=== PATIENT | female | born 1955 | race Caucasian/White ===

== ENCOUNTER 2018-07-02 16:53 | Inpatient (IN) | payer OTHER ==
[~2018-07-02] VITALS: Ht 167.6 cm; Wt 64.7 kg
[2018-07-02 17:33] LABS: BASOPHILS ABSOLUTE AUTO 0.02 K/mm3 (0.00-0.23); BASOPHILS PERCENT AUTO 0 % (0-2); EOSINOPHILS ABSOLUTE AUTO 0.09 K/mm3 (0.00-0.68); EOSINOPHILS PERCENT AUTO 1 % (0-6); Hematocrit 38.6 % (33.0-51.0); Hemoglobin 12.9 g/dL (11.5-16.0); IMMATURE GRAN ABSOLUTE AUTO 0.13 K/mm3 (0.00-0.10); IMMATURE GRAN PERCENT AUTO 1 % (0-1); LYMPHOCYTES ABSOLUTE AUTO 1.32 K/mm3 (0.84-5.20); LYMPHOCYTES PERCENT AUTO 13 % (21-46); MONOCYTES ABSOLUTE AUTO 0.55 K/mm3 (0.16-1.47); MONOCYTES PERCENT AUTO 6 % (4-13); Mean Corpuscular HGB 29.9 pg (26.0-34.0); Mean Corpuscular HGB Conc 33.4 g/dL (31.5-36.5); Mean Corpuscular Volume 90 fL (80-100); NEUTROPHILS ABSOLUTE AUTO 7.72 K/mm3 (1.96-9.15); NEUTROPHILS PERCENT AUTO 79 % (41-73); Platelet Count 201 K/mm3 (150-400); RDW Coefficient Variation 11.9 % (11.7-14.2); RDW Standard Deviation 39.3 fL (35.1-46.3); Red Blood Cell Count 4.31 M/mm3 (3.80-5.20); White Blood Cell Count 9.83 K/mm3 (4.00-11.30)
[2018-07-02 17:52] LABS: Prothrombin Time Results 10.3 Sec (9.7-11.5)
[2018-07-02 18:03] LABS: Alanine Aminotransfer (ALT/SGP 159 U/L (12-78); Albumin, Blood 3.3 g/dL (3.4-5.0); Albumin/Globulin Ratio 0.9 (0.8-1.8); Alk Phos 74 U/L (50-136); Anion Gap 8 mmol/L (6-16); Aspartate Aminotrans (AST/SGOT 205 U/L (12-37); Bilirubin, Total 0.4 mg/dL (0.1-1.0); Blood Urea Nitrogen 17 mg/dL (8-24); Bun/Creatinine Ratio 20.4 (12.0-20.0); CO2, Blood 26 mmol/L (21-32); Calcium, Blood 8.5 mg/dL (8.5-10.1); Chloride, Blood 107 mmol/L (98-108); Creatinine, Blood 0.83 mg/dL (0.40-1.00); Ethanol (Alcohol), Blood, Med <3 mg/dL; Globulin, Blood 3.6 g/dL (2.2-4.0); Glomerular Filtration Rate >60 (60-); Glucose, Blood 97 mg/dL (70-99); Potassium, Blood 3.8 mmol/L (3.5-5.5); Sodium, Blood 141 mmol/L (136-145); Total Protein, Blood 6.9 g/dL (6.4-8.2)
[2018-07-02] MEDS ORDERED: ACET325 PO (22:49)
[2018-07-02] MEDS ORDERED: ASPI325 PO (22:50)
[2018-07-03 03:04] LABS: U Amphetamine Screen DETECTED; U Barbituate Screen Not Detected; U Benzodiazapine Screen Not Detected; U Buprenorphine Screen Not Detected; U Cannabinoids Screen Not Detected; U Cocaine Screen Not Detected; U Methadone Screen Not Detected; U Methamphetamine Screen Not Detected; U Opiates Screen DETECTED; U Oxycodone Screen Not Detected; U Phencyclidine Screen Not Detected; U Propoxyphene Screen Not Detected
[2018-07-11] MEDS ORDERED: DOCU100 PO (18:08)
[2018-07-11] MEDS ORDERED: MIRALAX17 GM PO ×2 (18:10→18:11)
[2018-07-11] MEDS ORDERED: HYDR1TAB94 PO (18:10)
== END 2018-07-11 20:06 | disposition home or self-care (01) | DRG 535 ==
LOC: ER 16:53 → MEDS 16:54 → ER 16:54 → MEDS 16:54
PROVIDERS: Emergency Medicine
PROC: 3E0234Z Introduction of Serum, Toxoid and Vaccine into Muscle, Percutaneous Approach (ICD-10-PCS; principal; 2018-07-02)
DX: S32.511A Fracture of superior rim of right pubis, initial encounter for closed fracture (principal); S32.412A Displaced fracture of anterior wall of left acetabulum, initial encounter for closed fracture; S32.19XA Other fracture of sacrum, initial encounter for closed fracture; R40.2412 Glasgow coma scale score 13-15, at arrival to emergency department; S50.311A Abrasion of right elbow, initial encounter; W13.2XXA Fall from, out of or through roof, initial encounter; Y93.E9 Activity, other interior property and clothing maintenance; Y92.007 Garden or yard of unspecified non-institutional (private) residence as the place of occurrence of the external cause; Z23 Encounter for immunization; Z88.8 Allergy status to other drugs, medicaments and biological substances; Z79.82 Long term (current) use of aspirin; Z59.8 Other problems related to housing and economic circumstances
CPT/HCPCS: 70450; 71045; 71260; 72125; 72170; 73070; 74177; 80053; 83690; 85025; 85610; 85730; 86850; 86900; 86901; 90471; 90714; 96361; 96372; 96374; 96375; 96376; 97110; 97116; 97161; 97165; 97530; 97535; 99285-25; G0378; G0480; G8978; G8979; G8987; G8988; J1170; J1650; J2405; J3010; Q9967